=== PATIENT | female | born 1960 | race Caucasian/White ===

== ENCOUNTER 2023-05-02 19:24 | Outpatient (CLI) | payer OTHER, SELFPAY | END 2023-05-02 19:25 | disposition home or self-care (01) | PROVIDERS: Visit Provider Nurse Practitioner Family | DX: R10.9 Unspecified abdominal pain (principal); M54.9 Dorsalgia, unspecified | CPT/HCPCS: 80076; 83690; 86140; 87086 ==

== ENCOUNTER 2023-09-12 16:15 | Outpatient (RCR) | payer OTHER, SELFPAY ==
--- NOTE | 2023-08-22 17:30 | PT.OPEX ---
PT [place] [facility] PT [facility] Start: 08/22/23 11:32 Freq: Status: Active Protocol: Document 08/22/23 11:33 [facility] (Rec: 08/22/23 12:41 [facility] [id number]) E-signed By Cristi Merida, PT Physical Therapy Outpatient Evaluation Insurance Information Insurance Name [employer] Medical Diagnosis R ankle OA R knee OA plantar fasciitis Treating Diagnosis Right knee pain M25.561 right ankle pain M25.571 Stiffness R ankle M25.671 Muscle weakness 62.[address] Edmundo Ren Subjective Subjective Pt broke her right ankle ~5 years ago, a bad break, tib- fib open fracture, ORIF. After that, she had right knee pain /snapping on top of knee ( patella) and had arthroscopic sx to remove rough cartilage. That solved the snapping. ~2 years ago she twisted her left foot and sustained a fracture of left 5th toe - had surgery/CAM boot. A few months later she had right bunion surgery. Side note - Pt's daughter is a physical therapist in [place]. She is shocked that Gerri never had PT after her ankle surgery. Current symptoms: Right ankle: constant band restriction around ankle, ankle pain after activity fleeting/periodic right heel pain Right knee: lateral swelling, pain after activity, sit to stand, stairs sometimes Sleep sometime disrupted Baseline activity level: intermittent walking for exercise, elliptical Aggravating: walking on uneven ground (ankle) PMH: heart condition, recent diagnosis of peripheral neuropathy, arthritis, pulmonary emboli ~30 years ago (wears compression stockings/ on blood thinner) Pain Comments At worst: ankle: 8.5/10 knee: 8.5/10 at best: ankle: 0/10, knee: 0/10 Date of Last Physician Visit 08/08/23 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#) Preferred Name Shante Precautions Treatment Precautions/Contraindications on blood thinner med for h/o pulmonary emboli ~30 years ago Weight Bearing Status Full Weight Bearing Therapy Limitations/Systems Review Not Limited Objective Other/Pertinent Objective Balance: R SLS: 3 sec max L SLS 7 sec Ankle posture: forefoot eversion, mildly collapsed arches + visible mild/mod swelling right ankle ROM: Left ankle: WNL Right ankle: PF and Inversion WNL DF: limited to ~10 deg Eversion: limited compared to right, ~30 deg Right knee: WNL Palpation: no tenderness around right patella, knee joint line or distal ITB ankle: non tender posterior lat malleolus + TTP over medial dorsum of right foot (bunion sx site?) Right mild bunion still present calcaneal mobs: limited eversion and + clicking hypomobile TC A-P mobs hypermobile mid foot, bilaterally Strength: LEs: hip flexion 5/5 , knee extension R 4/5 (tremor /shaky) DF: 5/5 Inversion: 4+ /5 Eversion: 4/5 Left LE: hip flexion 5/5, knee extension 4+5 (mild tremor), ankle 5/5 Amb: Does not use big toe for push off on either side. Flat foot gait w/ favoring outer edge of feet. Functional Test Performed & Score DL squat: weight shift to left , favors right LE 8: limited control w/ step down LEFS: 56/80 Assessment Assessment/Impression 62 year old female with complex h/o of right ankle/ foot pain and right knee pain related to tib-fib fracture 5 years ago, toe fracture ~2 years ago and arthroscopic knee surgery also ~2 years ago for what sounds like chondromalacia patella. From Gerri's description, the extensive time she spent in a CAM boot impacted her right knee and she has had residual pain/stiffness ever since the surgery in her ankle. This is her first time having PT for her right LE in the last five years. She presents with impaired ROM and strength of her right foot/ankle along with thickened edema in her ankle, impaired balance and altered gait pattern. A new diagnosis for her is peripheral neuropathy of unknown origin. She displayed tremor with MMT of quads that may be related to this dx. I recommend skilled PT for progression of a HEP to facilitate ankle/LE strength, ROM and balance along with skilled MT to her right ankle to optimize her functional mobility. Primary Functional Limitations balance, ambulation on uneven surfaces, stairs, sit to stand , sleep Plan of Care Rehabilitation Potential Excellent Rehabilitation Potential Comments self-motivated Physical Therapy Goals In 6-8 weeks, patient will: 1) Tfr sit to stand painfree 2) Ambulate up/down flight of stairs painfree at the end of a day 3) Ambulate on uneven surfaces (ie mowing the lawn) with pain max afterwards of 2/10 4) Improve SLS balance to 15 seconds to reduce fall risk 5) Report sleep undisrupted by ankle/knee pain 6/7 nights per week Coordination/Communication With Referral Source Treatment Plan/Direct Interventions Joint Mobilization,Manual Therapy,Neuromuscular Re-ed, Self-Care/Home Management, Therapeutic Activities, Therapeutic Exercises Direct Interventions Clarification right ankle/foot mobs, prn. Comments ROM/strength ex. Balance ex/ motor control Frequency/Duration 1x/ week for 6-8 weeks Patient Will Be Discharged From Therapy Independent w/HEP, Independently Progressing Evaluation Billing Untimed Code Treatment Minutes 30 Complexity Moderate Certification Information Physician Comment/Change : Physician NPI Number #
== END 2023-12-17 10:52 | disposition home or self-care (01) ==
PROVIDERS: Visit Provider Orthopaedic Surgery
DX: M19.071 Primary osteoarthritis, right ankle and foot (principal); M17.11 Unilateral primary osteoarthritis, right knee; Z51.89 Encounter for other specified aftercare; M72.2 Plantar fascial fibromatosis
CPT/HCPCS: 97110; 97112; 97140; 97162

== ENCOUNTER 2024-01-24 18:39 | Emergency (ER) | payer OTHER, SELFPAY ==
[2024-01-24 19:04] VITALS: BP 136/81; PULSE 72; RESP 18; TEMP 36.4; O2SAT 95; BMI 30.5
--- NOTE | 2024-01-24 19:25 | ED_ITS ---
HPI - General Adult General Date Seen: 01/24/24 Chief complaint: Extremity Pain/Injury, Upper Stated complaint: L ring finger-severely infected wound Time Seen by Provider: 01/24/24 19:13 Source: patient Mode of arrival: ambulatory Limitations: no limitations History of Present Illness HPI narrative: Patient is a 63-year-old woman who presents for infection in her left 4th finger. She says she had a paper control clerk something originally, noted that it was getting little red, was seen in clinic earlier today and started on Keflex. She has taken essentially 1 dose, she took a 2nd dose right before coming to the ER. She noted some red streaking up her hand and forearm. She has not had fevers, chills, nausea, vomiting or other systemic symptoms. She does have a history of diagnosed polymyalgia rheumatica and was started on prednisone in October, she continues to take that although she is currently tapering down. Other medical history reviewed. She is anticoagulated secondary to history of pulmonary embolism. Related Data Home Medications Medication Instructions Recorded Confirmed atenolol 25 mg tablet 25 mg PO BID 05/02/23 08/05/23 ezetimibe 10 mg tablet 10 mg PO DAILY 05/02/23 08/05/23 sumatriptan succinate 50 mg tablet 50 mg PO 05/02/23 08/05/23 valacyclovir 1 gram tablet 4,000 mg PO ONCE 05/02/23 08/05/23 venlafaxine 37.5 mg 37.5 mg PO BID 05/02/23 08/05/23 capsule,extended release 24 hr warfarin 7.5 mg tablet mg PO 05/02/23 08/05/23 acetaminophen 500 mg tablet mg PO PRN 08/05/23 08/05/23 calcium carbonate-vitamin D3 PO 08/05/23 08/05/23 cholecalciferol (vitamin D3) 25 1,000 unit PO BID 08/05/23 08/05/23 mcg (1,000 unit) tablet diclofenac sodium 1 % topical gel 1 topical .Daily as needed PRN 08/05/23 08/05/23 diphenhydramine 25 2 tab PO .Bedtime 08/05/23 08/05/23 mg-acetaminophen 500 mg tablet lysine 500 mg tablet mg PO .3XWEEK 08/05/23 08/05/23 multivitamin (Multiple Vitamins 1 tab PO QDAY 08/05/23 08/05/23 tablet) penciclovir 1 % topical cream 1 applic topical PRN 08/05/23 08/05/23 sumatriptan succinate 25 mg tablet 25 mg PO .As Needed PRN 08/05/23 08/05/23 venlafaxine 75 mg tablet,extended 150 mg PO DAILY 08/05/23 08/05/23 release 24 hr Allergies Allergy/AdvReac Type Severity Reaction Status Date / Time simvastatin Allergy Intermediate malagia Verified 08/08/23 14:50 atorvastatin [From Lipitor] AdvReac Verified 08/08/23 14:50 Review of Systems Status of ROS: Reports: 10 or more systems reviewed and unremarkable except as noted in History and below [facility] Medical History Sleep apnea ?G47.30 - Sleep apnea, unspecified (ICD-10) Pulmonary embolism ?I26.99 - Other pulmonary embolism without acute cor pulmonale (ICD-10) Arthritis ?M19.90 - Unspecified osteoarthritis, unspecified site (ICD-10) UTI (urinary tract infection) ?N39.0 - Urinary tract infection, site not specified (ICD-10) Abdominal pain ?R10.9 - Unspecified abdominal pain (ICD-10) Surgical History H/O arthroscopy of right knee ?Z98.890 - Other specified postprocedural states (ICD-10) S/P tonsillectomy ?Z90.89 - Acquired absence of other organs (ICD-10) Open fracture of tibia and fibula ?S82.209B - Unspecified fracture of shaft of unspecified tibia, initial encounter for open fracture type I or II (ICD-10) ?S82.409B - Unspecified fracture of shaft of unspecified fibula, initial encounter for open fracture type I or II (ICD-10) History of hysteroscopy (08/02/15) ?Z98.890 - Other specified postprocedural states (ICD-10) Status post laparoscopic appendectomy (11/20/18) ?Z90.49 - Acquired absence of other specified parts of digestive tract (ICD- 10) Family History Father Diabetes Lung cancer Social History Smoking Status: Never smoker Non-prescribed substance use: denies use Exam Narrative: Exam Narrative: Vital signs reviewed In general, alert, well-appearing woman. Extremities: Examination of the left hand shows a small linear wound, there is a little bit of purulence noted underneath this and then about a half a cm of surrounding erythema. She does have a little lymphangitis streaking up the hand and midway up forearm. There is some tenderness around the wound, the rest of the finger looks normal however, she has full range of motion, no signs of tenosynovitis. Radial pulse 2 +, distal CMS normal. Skin: Warm dry well perfused otherwise intact. Const: Vital Signs, click to edit/add: Vital Signs - 24 hr 01/24/24 19:04 Temperature 97.6 F Pulse Rate [Pulse Oximeter] 72 Respiratory Rate 18 Blood Pressure [Ri ght Upper Arm] 136/81 Pulse Oximetry 95 Oxygen Delivery Me thod Room Air Documenting provider has reviewed patient's vital signs: yes Course Course ED Course: I used a 27 gauge needle to gently unroof the wound and expressed a small amount of pus from this. A bandage was applied by the electrocardiograph technician. Given that she is somewhat immune suppressed, I did recommend that we give her dose of IV Rocephin, get a baseline CBC CRP. She does not have any systemic complaints, looks well here and I think with only 1 dose affectively of the Keflex and that it is reasonable to discharge her home. I am going to switch her to doxycycline just to get some coverage for MRSA. If she has significant worsening at any time, or does not improve over 48 hours, she should return. Otherwise, follow up next week for recheck in clinic. Did discuss with her that her INR might be affected by the antibiotics, would be reasonable recheck that in clinic next week. Vital Signs Vital signs: Initial Vital Signs Temperature 97.6 F 01/24/24 19:04 Temperature Source Temporal Artery Scan 01/24/24 19:04 Pulse Rate 72 01/24/24 19:04 Pulse Rhythm Regular 01/24/24 19:04 Respiratory Rate 18 01/24/24 19:04 Blood Pressure 136/81 01/24/24 19:04 Blood Pressure Mean 99 01/24/24 19:04 Blood Pressure Position Sitting 01/24/24 19:04 Pulse Oximetry 95 01/24/24 19:04 Oxygen Delivery Method Room Air 01/24/24 19:04 Vital Signs Temperature 97.6 F 01/24/24 19:04 Pulse Rate 72 01/24/24 19:04 Respiratory Rate 18 01/24/24 19:04 Blood Pressure 136/81 01/24/24 19:04 Pulse Oximetry 95 01/24/24 19:04 Oxygen Delivery Method Room Air 01/24/24 19:04 Temperature 97.6 F 01/24/24 19:04 Pulse Rate 72 01/24/24 19:04 Respiratory Rate 18 01/24/24 19:04 Blood Pressure 136/81 01/24/24 19:04 Pulse Oximetry 95 01/24/24 19:04 Oxygen Delivery Method Room Air 01/24/24 19:04 Medications Administered Medications: Generic Name Dose Route Start Last Admin Trade Name Freq PRN Reason Stop Dose Admin Ceftriaxone Sodium 1 gm/ 100 mls @ 200 mls/hr 01/24/24 19:22 01/24/24 19:49 Sodium Chloride IVPB 01/24/24 19:23 200 mls/hr ONCE ONE Administration Medical Decision Making Lab Data Labs: Lab Results 01/24/24 Range/Units 19:35 WBC 5.67 (4.50-11.00) K/uL RBC 4.63 (4.00-5.20) m/uL Hgb 13.4 (12.0-16.0) gm/dL Hct 40.3 (33.0-51.0) % MCV 87 (80-100) fL MCH 29 (26-34) pg MCHC 33 (32-36) gm/dL RDW Coeff of Umu 16.0 H (11.5-15.5) % Plt Count 229 (140-440) K/uL Neut % (Auto) 55.6 (42.0-72.0) % Lymph % (Auto) 32.8 (20-44) % [place] % (Auto) 8.5 (0.0-11.0) % Eos % (Auto) 2.3 (0.0-7.0) % Baso % (Auto) 0.4 (0.0-3.0) % Neut # (Auto) 3.16 (1.7-7.0) K/uL Lymph # (Auto) 1.86 (0.90-2.90) K/uL [place] # (Auto) 0.50 (0.00-0.90) K/UL Eos # (Auto) 0.13 (0.00-0.50) K/uL Baso # (Auto) 0.02 (0.00-0.30) K/uL Abs Immat Gran (auto) 0.02 (0.00-0.30) K/uL Imm/Tot Granulo (auto) 0.4 % C-Reactive Protein < 0.5 L (0.5-1.0) mg/dL Discharge Plan Discharge Clinical Impression: Infected wound, Lymphangitis Patient Disposition: Home, Self-Care Condition: Stable Instructions: Wound Infection (DC) Additional Instructions: Discontinue Keflex, start doxycycline as prescribed. I would expect over the next 24-48 hours that you should have significant improvement. If instead you notice worsening, if you have significant worsening at any time, with severe redness, swelling, pain, or new systemic symptoms such as fever, chills, vomiting, return at any time to the emergency department. If not significantly improved in 48 hours, return or see your clinic. Otherwise, follow up next week in clinic for recheck, consider checking INR as this can be affected by the antibiotics. Prescriptions: No Action valacyclovir 1 gram tablet 4,000 mg PO ONCE warfarin 7.5 mg tablet PO sumatriptan succinate 50 mg tablet 50 mg PO ezetimibe 10 mg tablet 10 mg PO DAILY venlafaxine 37.5 mg capsule,extended release 24hr 37.5 mg PO BID atenolol 25 mg tablet 25 mg PO BID venlafaxine 75 mg tablet extended release 24hr 150 mg PO DAILY diclofenac sodium 1 % gel 1 topical .Daily as needed PRN cholecalciferol (vitamin D3) 25 mcg (1,000 unit) tablet 1,000 unit PO BID lysine 500 mg tablet PO .3XWEEK acetaminophen 500 mg tablet PO PRN Rx Instructions: NO MORE THAN 4000 MG/DAY diphenhydramine-acetaminophen 25-500 mg tablet 2 tab PO .Bedtime multivitamin [Multiple Vitamins] Tablet 1 tab PO QDAY sumatriptan succinate 25 mg tablet 25 mg PO .As Needed PRN Rx Instructions: ONE TAB AT ONSET OF HEADACHE, MAY REPEAT Q2H PRN, MAX 200 MG/24 HRS penciclovir 1 % cream 1 applic topical PRN Rx Instructions: APPLY A SMALL AMOUNT TO THE AFFECTED AREA calcium carbonate-vitamin D3 PO Follow Up/Referrals: Provider,Not a Local [Primary Care Provider] - Stand Alone Forms: Recommindth Info Instructions
[2024-01-24] MEDS: cefTRIAXone 1 GM in 0.9 % SODIUM CHLORIDE Mini-bag 100 ML IVPB (19:49)
[2024-01-24 19:50] LABS: Basophils Absolute Auto 0.02 K/uL (0.00-0.30); Basophils Percent Auto 0.4 % (0.0-3.0); Eosinophils Absolute Auto 0.13 K/uL (0.00-0.50); Eosinophils Percent Auto 2.3 % (0.0-7.0); Hematocrit 40.3 % (33.0-51.0); Hemoglobin* 13.4 gm/dL (12.0-16.0); Immature Granulocytes Abs Auto 0.02 K/uL (0.00-0.30); Immature Granulocytes Pct Auto 0.4 %; Lymphocytes Absolute Auto 1.86 K/uL (0.90-2.90); Lymphocytes Percent Auto 32.8 % (20-44); Mean Corpuscular HGB Conc 33 gm/dL (32-36); Mean Corpuscular Hemoglobin 29 pg (26-34); Mean Corpuscular Volume 87 fL (80-100); Monocytes Percent Auto 8.5 % (0.0-11.0); Neutrophils Absolute Auto 3.16 K/uL (1.7-7.0); Neutrophils Percent Auto 55.6 % (42.0-72.0); Platelet Count* 229 K/uL (140-440); Red Blood Count 4.63 m/uL (4.00-5.20); White Blood Count* 5.67 K/uL (4.50-11.00)
[2024-01-24 19:53] LABS: Slide Review Reflex No
[2024-01-24 20:05] LABS: C Reactive Protein* < 0.5 mg/dL (0.5-1.0)
== END 2024-01-24 20:34 | disposition home or self-care (01) ==
LOC: ED 19:47
PROVIDERS: Emergency Provider Emergency Medicine
DX: L08.9 Local infection of the skin and subcutaneous tissue, unspecified (principal); I89.1 Lymphangitis
CPT/HCPCS: 36415; 85025; 86140; 96365; 99284; J0696

== ENCOUNTER 2024-01-25 13:39 | Emergency (ER) | payer OTHER, SELFPAY ==
[2024-01-25 14:03] VITALS: BP 144/90; PULSE 65; RESP 18; TEMP 36.4; O2SAT 95; BMI 30.5
--- NOTE | 2024-01-25 15:41 | ED.SKABFB ---
HPI - Skin/Abscess/Foreign Bdy General Chief complaint: Skin/Abscess/Foreign Body Stated complaint: rash on left arm Time Seen by Provider: 01/25/24 13:51 History of Present Illness HPI narrative: Patient presents to the emergency department complaining of redness outside previous tracing from a previous visit. Patient was placed on abx Patient was seen last night, given a dosage of Rocephin, and placed on doxycycline as she previously was on Keflex. Told to follow-up if increasing redness of which there is. She has been hanging her wrist down. Notes that the redness is more proximal cry about approximately 4-6 cm. But she has had no pain. And has able to move around her hand normally she denies any fevers chills or sweats. I did review the chart from before P Related Data Home Medications Medication Instructions Recorded Confirmed atenolol 25 mg tablet 25 mg PO BID 05/02/23 08/05/23 ezetimibe 10 mg tablet 10 mg PO DAILY 05/02/23 08/05/23 sumatriptan succinate 50 mg tablet 50 mg PO 05/02/23 08/05/23 valacyclovir 1 gram tablet 4,000 mg PO ONCE 05/02/23 08/05/23 venlafaxine 37.5 mg 37.5 mg PO BID 05/02/23 08/05/23 capsule,extended release 24 hr warfarin 7.5 mg tablet mg PO 05/02/23 08/05/23 acetaminophen 500 mg tablet mg PO PRN 08/05/23 08/05/23 calcium carbonate-vitamin D3 PO 08/05/23 08/05/23 cholecalciferol (vitamin D3) 25 1,000 unit PO BID 08/05/23 08/05/23 mcg (1,000 unit) tablet diclofenac sodium 1 % topical gel 1 topical .Daily as needed PRN 08/05/23 08/05/23 diphenhydramine 25 2 tab PO .Bedtime 08/05/23 08/05/23 mg-acetaminophen 500 mg tablet lysine 500 mg tablet mg PO .3XWEEK 08/05/23 08/05/23 multivitamin (Multiple Vitamins 1 tab PO QDAY 08/05/23 08/05/23 tablet) penciclovir 1 % topical cream 1 applic topical PRN 08/05/23 08/05/23 sumatriptan succinate 25 mg tablet 25 mg PO .As Needed PRN 08/05/23 08/05/23 venlafaxine 75 mg tablet,extended 150 mg PO DAILY 08/05/23 08/05/23 release 24 hr Allergies Allergy/AdvReac Type Severity Reaction Status Date / Time simvastatin Allergy Intermediate malagia Verified 08/08/23 14:50 atorvastatin [From Lipitor] AdvReac Verified 08/08/23 14:50 Review of Systems Status of ROS: Reports: 6 or more systems reviewed and unremarkable except as noted in History and below PFSH PFS Medical History Sleep apnea ?G47.30 - Sleep apnea, unspecified (ICD-10) Pulmonary embolism ?I26.99 - Other pulmonary embolism without acute cor pulmonale (ICD-10) Arthritis ?M19.90 - Unspecified osteoarthritis, unspecified site (ICD-10) UTI (urinary tract infection) ?N39.0 - Urinary tract infection, site not specified (ICD-10) Abdominal pain ?R10.9 - Unspecified abdominal pain (ICD-10) Surgical History H/O arthroscopy of right knee ?Z98.890 - Other specified postprocedural states (ICD-10) S/P tonsillectomy ?Z90.89 - Acquired absence of other organs (ICD-10) Open fracture of tibia and fibula ?S82.209B - Unspecified fracture of shaft of unspecified tibia, initial encounter for open fracture type I or II (ICD-10) ?S82.409B - Unspecified fracture of shaft of unspecified fibula, initial encounter for open fracture type I or II (ICD-10) History of hysteroscopy (08/02/15) ?Z98.890 - Other specified postprocedural states (ICD-10) Status post laparoscopic appendectomy (11/20/18) ?Z90.49 - Acquired absence of other specified parts of digestive tract (ICD-10) Family History Father Diabetes Lung cancer Social History Smoking Status: Never smoker Do you use any of these nicotine containing products: None Second hand tobacco smoke exposure: No How often do you have a drink containing alcohol: never How often do you have six or more drinks on one occasion: Never AUDIT-C Alcohol total score: 0 Non-prescribed substance use: denies use service: No Exam Narrative: Exam Narrative: On examination there is a little bit a redness coming up her mid forearm, on the dorsum of her hand, there is no tenderness to palpation, there is not a lot of swelling, she is able to move her fingers normally. Through full range of motion of flexion extension, as is her wrist. Cap refills normal neurologically she is intact her Review of the yesterday's note show normal white count, Const: Vital Signs, click to edit/add: Vital Signs - 24 hr 01/25/24 14:03 Temperature 97.5 F L Pulse Rate [Left P ulse Oximeter] 65 Respiratory Rate 18 Blood Pressure [Le ft Upper Arm] 144/90 H Pulse Oximetry 95 Oxygen Delivery Me thod Room Air Documenting provider has reviewed patient's vital signs: yes Course Course ED Course: I discussed with her that this is normal for to worsen a little bit, I do not a she huge difference here in fact a by DB a little bit better as the swelling is I do think that immobilization along with a sling will be helpful here. She will continue on with the doxycycline of which she has really got at 1 dose in since she started it. I did residential substance abuse counselor her to come back if she has increasing fevers chills of the redness comes up above her elbow. Her she has pain in her hand Vital Signs Vital signs: Initial Vital Signs Temperature 97.5 F L 01/25/24 14:03 Temperature Source Temporal Artery Scan 01/25/24 14:03 Pulse Rate 65 01/25/24 14:03 Pulse Rhythm Regular 01/25/24 14:03 Pulse Strength 3+ Normal 01/25/24 14:03 Respiratory Rate 18 01/25/24 14:03 Blood Pressure 144/90 H 01/25/24 14:03 Blood Pressure Mean 108 H 01/25/24 14:03 Blood Pressure Position Sitting 01/25/24 14:03 Pulse Oximetry 95 01/25/24 14:03 Oxygen Delivery Method Room Air 01/25/24 14:03 Vital Signs Temperature 97.5 F L 01/25/24 14:03 Pulse Rate 65 01/25/24 14:03 Respiratory Rate 18 01/25/24 14:03 Blood Pressure 144/90 H 01/25/24 14:03 Pulse Oximetry 95 01/25/24 14:03 Oxygen Delivery Method Room Air 01/25/24 14:03 Temperature 97.5 F L 01/25/24 14:03 Pulse Rate 65 01/25/24 14:03 Respiratory Rate 18 01/25/24 14:03 Blood Pressure 144/90 H 01/25/24 14:03 Pulse Oximetry 95 01/25/24 14:03 Oxygen Delivery Method Room Air 01/25/24 14:03 MDM - Skin/Abscess/Foreign Bdy MDM Narrative Medical decision making narrative: During this evaluation I considered multiple diagnosis: Worsening cellulitis, tenosynovitis, lymphatic joint is, cat scratch disease, Medical Records Attestation: I reviewed the patient's medical records. Lab Data Attestation: I reviewed the patient's lab results. Discharge Plan Discharge Clinical Impression: Cellulitis Patient Disposition: Home, Self-Care Condition: Stable Instructions: Cellulitis (ED) Additional Instructions: Home rest use of the sling while waking hours, this may come up at nighttime when you sleep, please use the splint for the next 2-3 days, this is pretty normal the process, I do not see any science of really severe issues here. But would like to see back if he have increasing eye redness is coming up above the level of your elbow. Fevers chills or significant pain. Take the doxycycline as directed. Activity Level: Light activity Prescriptions: No Action valacyclovir 1 gram tablet 4,000 mg PO ONCE warfarin 7.5 mg tablet PO sumatriptan succinate 50 mg tablet 50 mg PO ezetimibe 10 mg tablet 10 mg PO DAILY venlafaxine 37.5 mg capsule,extended release 24hr 37.5 mg PO BID atenolol 25 mg tablet 25 mg PO BID venlafaxine 75 mg tablet extended release 24hr 150 mg PO DAILY diclofenac sodium 1 % gel 1 topical .Daily as needed PRN cholecalciferol (vitamin D3) 25 mcg (1,000 unit) tablet 1,000 unit PO BID lysine 500 mg tablet PO .3XWEEK acetaminophen 500 mg tablet PO PRN Rx Instructions: NO MORE THAN 4000 MG/DAY diphenhydramine-acetaminophen 25-500 mg tablet 2 tab PO .Bedtime multivitamin [Multiple Vitamins] Tablet 1 tab PO QDAY sumatriptan succinate 25 mg tablet 25 mg PO .As Needed PRN Rx Instructions: ONE TAB AT ONSET OF HEADACHE, MAY REPEAT Q2H PRN, MAX 200 MG/24 HRS penciclovir 1 % cream 1 applic topical PRN Rx Instructions: APPLY A SMALL AMOUNT TO THE AFFECTED AREA calcium carbonate-vitamin D3 PO Follow Up/Referrals: Provider,Not a Local [Primary Care Provider] - Stand Alone Forms: [employer] Info Instructions
== END 2024-01-25 14:56 | disposition home or self-care (01) ==
PROVIDERS: Emergency Provider Family Medicine
DX: L03.114 Cellulitis of left upper limb (principal)
CPT/HCPCS: 99283

== ENCOUNTER 2024-05-20 08:39 | Emergency (ER) | payer OTHER, SELFPAY ==
[2024-05-20] VITALS (8 sets, daily range): BP systolic 158–160; BP diastolic 93–115; PULSE 60–96; RESP 18; TEMP 36.7; O2SAT 94–98; BMI 30.9
--- NOTE | 2024-05-20 09:44 | CRLHL7_ITS ---
For Patients: As a result of the Century Cures Act, medical imaging exams and procedure reports are released immediately into your electronic medical record. You may view this report before your referring provider. If you have questions, please contact your health care provider. INDICATION: Diplopia. TECHNIQUE: CT head without contrast. COMPARISON: None. FINDINGS: CSF spaces: Within normal limits for age. Brain parenchyma and extra-axial spaces: The mauricio-white differentiation is normal. No sign of mass, hemorrhage, or midline shift. No extra-axial fluid collection. Skull base and calvarium: The visualized paranasal sinuses and mastoid air cells demonstrate no acute or significant findings. The visualized orbits are grossly unremarkable. No skull fractures. Subcutaneous lesion within the vertex, likely a sebaceous cyst. IMPRESSION: Unremarkable noncontrast head CT. Please note that all CT scans at this facility use dose modulation, iterative reconstruction, and/or weight-based dosing when appropriate to reduce radiation dose to as low as reasonably achievable. Dictated by Toribio Grant MD @ 05/20/2024 10:39:53 AM (Electronically Signed)
--- NOTE | 2024-05-20 09:44 | CRLHL7_ITS ---
For Patients: As a result of the Century Cures Act, medical imaging exams and procedure reports are released immediately into your electronic medical record. You may view this report before your referring provider. If you have questions, please contact your health care provider. Indication: Diplopia Technique: MRI Head: performed before and after IV contrast. MRA Head: performed without IV contrast. MRA Neck: performed before and after IV contrast. Gadolinium-based contrast agent: 20 mL Dotarem IV contrast. Comparison: CT head report 05/20/2024. Findings: MRI Head: No evidence for recent or remote infarct or hemorrhage. No intracranial mass effect. No ventricular obstruction. Scattered foci of FLAIR hyperintensity throughout the supratentorial white matter and dorsal greater than ventral maegan, nonspecific, but suggestive of chronic microangiopathy. No pathologic postcontrast enhancement or suspicious susceptibility artifact. Unremarkable midline structures. Normal bone marrow signal. High parietal scalp sebaceous cyst. No obstructive paranasal sinus disease or mastoid effusion. Bilateral lens implants. MRA Head: The intracranial segments of the internal carotid arteries and basilar artery are widely patent. The anterior, middle and posterior cerebral arteries and proximal branches are grossly patent. There is suggestion of a shallow outpouching in the region of the origin right posterior communicating artery (series 1/112), without imaging correlate on the postcontrast MRI brain or MRA neck images. No high-flow AV malformation. MRA Neck: The bilateral common carotid arteries, internal and external carotid arteries are widely patent. No stenosis near the common carotid bifurcations. Bilateral vertebral arteries also appear widely patent. Impression: MRI Head: 1. No acute pathology identified. No evidence for mass, hemorrhage or recent infarct. 2. Mild generalized cerebral volume loss and mild presumed chronic microangiopathy changes. MRA Head: 1. Questionable outpouching at the origin right posterior communicating artery, could represent a tiny aneurysm, infundibulum, or artifact. Outpatient consultation with the [facility] Neurointerventional service can be arranged by calling [phone]. 2. No intracranial large vessel occlusion, critical stenosis, or high-flow AV malformation. MRA Neck: 1. No evidence for hemodynamically significant stenosis in the neck. Dictated by Dipti Merlos MD @ 05/20/2024 12:20:51 PM (Electronically Signed)
--- NOTE | 2024-05-20 09:48 | ED.GENADULT ---
HPI - General Adult General Chief complaint: Eye Problems Stated complaint: Double vision since yesterday, headache Time Seen by Provider: 05/20/24 08:53 History of Present Illness HPI narrative: Patient is a pleasant 63 white female has had a history of pulmonary embolus, on Coumadin with INR due to be checked, as well as on prednisone for PMR, presents after onset of double vision yesterday. She had reports a mild headache, feels like ?her left eye is funny?. She has noted yesterday that she had intermittent episodes of double vision or blurred vision, but each individual eye when the other eye was covered seemed to be normal but just generally blurry she does wear his corrective lenses. Intermittently she had the double vision today and actually could see [address] above another road sign. No chest pain, no fever, no other neurologic signs or symptoms, no facial asymmetry word-finding inability or weakness or numbness or dysesthesia noted in upper lower extremities. Related Data Home Medications ?Medication ?Instructions ?Recorded ?Confirmed ezetimibe 10 mg tablet 10 mg PO DAILY 05/02/23 05/20/24 sumatriptan succinate 50 mg tablet 50 mg PO Q2H 05/02/23 05/20/24 valacyclovir 1 gram tablet 4,000 mg PO ONCE 05/02/23 05/20/24 warfarin 7.5 mg tablet 7.5 mg PO DAILY 05/02/23 05/20/24 acetaminophen 500 mg tablet 500 mg PO PRN 08/05/23 08/05/23 calcium carbonate-vitamin D3 PO 08/05/23 08/05/23 cholecalciferol (vitamin D3) 25 1,000 unit PO BID 08/05/23 05/20/24 mcg (1,000 unit) tablet diclofenac sodium 1 % topical gel 2 g topical .Daily as needed PRN 08/05/23 05/20/24 diphenhydramine 25 2 tab PO .Bedtime 08/05/23 05/20/24 mg-acetaminophen 500 mg tablet lysine 500 mg tablet 500 mg PO .3XWEEK 08/05/23 05/20/24 multivitamin (Multiple Vitamins 1 tab PO QDAY 08/05/23 05/20/24 tablet) penciclovir 1 % topical cream 1 applic topical Q2H PRN 08/05/23 05/20/24 sumatriptan succinate 25 mg tablet 25 mg PO .As Needed PRN 08/05/23 08/05/23 venlafaxine 75 mg tablet,extended 150 mg PO DAILY 08/05/23 05/20/24 release 24 hr rosuvastatin 10 mg tablet PO 05/20/24 Allergies Allergy/AdvReac Type Severity Reaction Status Date / Time simvastatin Allergy Intermediate malagia Verified 08/08/23 14:50 atorvastatin [From Lipitor] AdvReac Verified 08/08/23 14:50 Review of Systems Status of ROS: Reports: 6 or more systems reviewed and unremarkable except as noted in History and below [facility] Medical History Sleep apnea ?G47.30 - Sleep apnea, unspecified (ICD-10) Pulmonary embolism ?I26.99 - Other pulmonary embolism without acute cor pulmonale (ICD-10) Arthritis ?M19.90 - Unspecified osteoarthritis, unspecified site (ICD-10) UTI (urinary tract infection) ?N39.0 - Urinary tract infection, site not specified (ICD-10) Abdominal pain ?R10.9 - Unspecified abdominal pain (ICD-10) Surgical History H/O arthroscopy of right knee ?Z98.890 - Other specified postprocedural states (ICD-10) S/P tonsillectomy ?Z90.89 - Acquired absence of other organs (ICD-10) Open fracture of tibia and fibula ?S82.209B - Unspecified fracture of shaft of unspecified tibia, initial encounter for open fracture type I or II (ICD-10) ?S82.409B - Unspecified fracture of shaft of unspecified fibula, initial encounter for open fracture type I or II (ICD-10) History of hysteroscopy (08/02/15) ?Z98.890 - Other specified postprocedural states (ICD-10) Status post laparoscopic appendectomy (11/20/18) ?Z90.49 - Acquired absence of other specified parts of digestive tract (ICD-10) Family History Father Diabetes Lung cancer Social History Smoking Status: Never smoker Do you use any of these nicotine containing products: None Second hand tobacco smoke exposure: No How often do you have a drink containing alcohol: 2-4 times a month How often do you have six or more drinks on one occasion: Never AUDIT-C Alcohol total score: 2 Non-prescribed substance use: denies use service: No Exam Narrative: Exam Narrative: Objective: Vital signs are within normal limits Alert orient x3 No facial asymmetry Pupils equal react to light extra movements intact Patient does not notice the double vision now or diplopia Mouth clear tongue protrudes midline Neck is supple Chest clear Heart rhythm regular heart murmur Abdomen benign Extremities are no edema neurologic nonfocal normal strength sensation and function of upper lower extremities. Const: Vital Signs, click to edit/add: Vital Signs - 24 hr 05/20/24 08:50 05/20/24 11:33 05/20/24 11:34 Temperature 98.1 F Pulse Rate 62 Pulse Rate [Pulse Oximeter] 96 Respiratory Rate 18 Blood Pressure 160/115 H Pulse Oximetry 96 97 97 Oxygen Delivery Me thod Room Air 05/20/24 11:34 05/20/24 12:00 05/20/24 12:02 Temperature Pulse Rate 60 62 62 Pulse Rate [Pulse Oximeter] Respiratory Rate Blood Pressure 158/94 H Pulse Oximetry 98 94 95 Oxygen Delivery Me thod 05/20/24 12:30 05/20/24 12:32 05/20/24 12:57 Temperature 98.1 F Pulse Rate 63 63 Pulse Rate [Pulse Oximeter] 96 Respiratory Rate 18 Blood Pressure 160/93 H Pulse Oximetry 95 96 Oxygen Delivery Me thod Course Vital Signs Vital signs: Initial Vital Signs Temperature 98.1 F 05/20/24 08:50 Temperature Source Temporal Artery Scan 05/20/24 08:50 Pulse Rate 96 05/20/24 08:50 Pulse Rhythm Regular 05/20/24 08:50 Respiratory Rate 18 05/20/24 08:50 Pulse Oximetry 96 05/20/24 08:50 Oxygen Delivery Method Room Air 05/20/24 08:50 Vital Signs Temperature 98.1 F 05/20/24 08:50 Pulse Rate 96 05/20/24 08:50 Respiratory Rate 18 05/20/24 08:50 Pulse Oximetry 96 05/20/24 08:50 Oxygen Delivery Method Room Air 05/20/24 08:50 Temperature 98.1 F 05/20/24 12:57 Pulse Rate 96 05/20/24 12:57 Respiratory Rate 18 05/20/24 12:57 Blood Pressure 160/93 H 05/20/24 12:32 Pulse Oximetry 96 05/20/24 12:32 Oxygen Delivery Method Room Air 05/20/24 08:50 Medications Administered Medications: Discontinued Medications Generic Name Dose Route Start Last Admin Trade Name Freq PRN Reason Stop Dose Admin Sodium Chloride 500 mls @ 500 mls/hr 05/20/24 09:46 05/20/24 12:50 0.9 % Sodium Chloride 500 Ml IV 05/20/24 10:45 Infused .Q1H ONE Infusion Medical Decision Making MDM Narrative Medical decision making narrative: [age] year white female with history of anticoagulation for pulmonary embolus, currently on Coumadin, presents with diplopia on and off over 24 hours. No other focal neurologic findings or complaints. Patient notices it somewhat today as well although it has been intermittent. I think at this point would be reasonable given she is on Coumadin check her labs get a CT scan to rule out bleed, get MRI MRA of her head neck. Will discuss with Stroke Neurology. Look at her INR. Get an EKG as well. Disposition pending findings. Lab Data Labs: Lab Results 05/20/24 Range/Units 10:16 WBC 11.60 H (4.50-11.00) K/uL RBC 4.51 (4.00-5.20) m/uL Hgb 13.6 (12.0-16.0) gm/dL Hct 41.9 (33.0-51.0) % MCV 93 (80-100) fL MCH 30 (26-34) pg MCHC 33 (32-36) gm/dL RDW Coeff of Umu 14.2 (11.5-15.5) % Plt Count 253 (140-440) K/uL Neut % (Auto) 82.3 H (42.0-72.0) % Lymph % (Auto) 9.9 L (20-44) % [place] % (Auto) 6.6 (0.0-11.0) % Eos % (Auto) 0.6 (0.0-7.0) % Baso % (Auto) 0.2 (0.0-3.0) % Neut # (Auto) 9.50 H (1.7-7.0) K/uL Lymph # (Auto) 1.10 (0.90-2.90) K/uL [place] # (Auto) 0.80 (0.00-0.90) K/UL Eos # (Auto) 0.10 (0.00-0.50) K/uL Baso # (Auto) 0.00 (0.00-0.30) K/uL Abs Immat Gran (auto) 0.00 (0.00-0.30) K/uL Imm/Tot Granulo (auto) 0.4 % INR 1.61 H (0.91-1.10) Sodium 137 (135-149) mmol/L Potassium 4.7 (3.6-5.1) mmol/L Chloride 104 (96-114) mmol/L Carbon Dioxide 28 (20-32) mmol/L Anion Gap 5 L (7-15) mEq/L BUN 18 (7-30) mg/dL Creatinine 0.7 (0.5-1.5) mg/dL Estimated Creat Clear 56.72 Estimated GFR 98 ml/min Glucose 110 (60-115) mg/dL Calcium 9.7 (8.4-10.6) mg/dL Total Bilirubin 0.6 (0.1-1.5) mg/dL Direct Bilirubin 0.3 (0.0-0.5) mg/dL AST 26 (12-35) U/L ALT 24 (4-35) U/L Alkaline Phosphatase 40 (40-150) U/L C-Reactive Protein < 0.5 L (0.5-1.0) mg/dL NT-Pro-B Natriuret Pep 139 pg/mL Total Protein 7.4 (6.0-8.3) g/dL Albumin 4.6 (3.3-5.0) g/dL Discharge Plan Discharge Clinical Impression: Diplopia Patient Disposition: Home w/ Parent or Adult Condition: Stable Additional Instructions: Continue Coumadin, you need an extra half dose today and then recheck your INR within the next couple of days. Recommend follow-up with [facility] neuro- interventional service which can be reached at [phone]. Recommend an eye appointment today for re-examination. There were no abnormal findings on her MRI or CT scan, except a tiny outpouching of the posterior communicating artery near brain which could represent an aneurysm or an artifact. Recommend follow-up with the neurointerventional clinic for evaluation Follow up appointment is scheduled at [facility] on 05/20 with a 3:10pm arrival time. If you have any questions, please call [phone]. [facility] [address] [place] [address] Activity Level: Light activity Discharge Diet: Regular Prescriptions: No Action valacyclovir 1 gram tablet 4,000 mg PO ONCE warfarin 7.5 mg tablet 7.5 mg PO DAILY sumatriptan succinate 50 mg tablet 50 mg PO Q2H ezetimibe 10 mg tablet 10 mg PO DAILY venlafaxine 75 mg tablet extended release 24hr 150 mg PO DAILY diclofenac sodium 1 % gel 2 g topical .Daily as needed PRN cholecalciferol (vitamin D3) 25 mcg (1,000 unit) tablet 1,000 unit PO BID lysine 500 mg tablet 500 mg PO .3XWEEK acetaminophen 500 mg tablet 500 mg PO PRN Rx Instructions: NO MORE THAN 4000 MG/DAY diphenhydramine-acetaminophen 25-500 mg tablet 2 tab PO .Bedtime multivitamin [Multiple Vitamins] Tablet 1 tab PO QDAY sumatriptan succinate 25 mg tablet 25 mg PO .As Needed PRN Rx Instructions: ONE TAB AT ONSET OF HEADACHE, MAY REPEAT Q2H PRN, MAX 200 MG/24 HRS penciclovir 1 % cream 1 applic topical Q2H PRN Rx Instructions: APPLY A SMALL AMOUNT TO THE AFFECTED AREA calcium carbonate-vitamin D3 PO rosuvastatin 10 mg tablet PO Follow Up/Referrals: Provider,Not a Local [Primary Care Provider] - Stand Alone Forms: [employer] Info Instructions
[2024-05-20 10:31] LABS: Basophils Percent Auto 0.2 % (0.0-3.0); Eosinophils Percent Auto 0.6 % (0.0-7.0); Hematocrit 41.9 % (33.0-51.0); Hemoglobin* 13.6 gm/dL (12.0-16.0); Immature Granulocytes Pct Auto 0.4 %; Lymphocytes Percent Auto 9.9 % (20-44); Mean Corpuscular HGB Conc 33 gm/dL (32-36); Mean Corpuscular Hemoglobin 30 pg (26-34); Mean Corpuscular Volume 93 fL (80-100); Monocytes Percent Auto 6.6 % (0.0-11.0); Neutrophils Percent Auto 82.3 % (42.0-72.0); Platelet Count* 253 K/uL (140-440); RDW Coefficient of Variation % 14.2 % (11.5-15.5); Red Blood Count 4.51 m/uL (4.00-5.20)
[2024-05-20 10:33] LABS: Slide Review Reflex No
[2024-05-20 10:42] LABS: INR 1.61 (0.91-1.10); Prothrombin Time 20.2 Seconds
[2024-05-20 10:53] LABS: Albumin* 4.6 g/dL (3.3-5.0); Chloride* 104 mmol/L (96-114)
[2024-05-20 10:54] LABS: Potassium* 4.7 mmol/L (3.6-5.1); Sodium* 137 mmol/L (135-149)
[2024-05-20 10:56] LABS: Creatinine* 0.7 mg/dL (0.5-1.5); Est. Creatinine Clearance* 56.72; Estimated Glomerular Filt Rate 98 ml/min
[2024-05-20 10:57] LABS: Alanine Aminotransferase* 24 U/L (4-35); Alkaline Phosphatase* 40 U/L (40-150); Anion Gap 5 mEq/L (7-15); Aspartate Amino Transferase* 26 U/L (12-35); Bilirubin Direct* 0.3 mg/dL (0.0-0.5); Bilirubin Total* 0.6 mg/dL (0.1-1.5); Blood Urea Nitrogen* 18 mg/dL (7-30); Calcium* 9.7 mg/dL (8.4-10.6); Carbon Dioxide* 28 mmol/L (20-32); Glucose* 110 mg/dL (60-115); Total Protein* 7.4 g/dL (6.0-8.3)
[2024-05-20 11:04] LABS: C Reactive Protein* < 0.5 mg/dL (0.5-1.0)
[2024-05-20 11:07] LABS: NT Pro B Type NatriureticPept* 139 pg/mL
[2024-05-20] MEDS: 0.9 % SODIUM CHLORIDE 500 ML 500 ML IV (11:35)
== END 2024-05-20 13:02 | disposition home or self-care (01) ==
PROVIDERS: Emergency Provider Family Medicine
DX: H53.2 Diplopia (principal)
CPT/HCPCS: 36415; 70450; 70544; 70549; 70553; 80048; 80076; 83880; 85025; 85610; 86140; 93005; 94761; 99285; A9575; J7030

== ENCOUNTER 2024-07-11 11:03 | Emergency (ER) | payer OTHER, SELFPAY ==
[2024-07-11 11:10] VITALS: BP 112/83; PULSE 145; RESP 16; TEMP 36.4; O2SAT 98; BMI 31.0
--- NOTE | 2024-07-11 11:31 | CRLHL7_ITS ---
For Patients: As a result of the Century Cures Act, medical imaging exams and procedure reports are released immediately into your electronic medical record. You may view this report before your referring provider. If you have questions, please contact your health care provider. INDICATION: Chest pain TECHNIQUE: Chest radiograph 1 view COMPARISON: None FINDINGS: The sensitivity and specificity of the exam are moderately limited by the patient`s body habitus. Mediastinum: The mediastinum is normal in appearance. The heart silhouette is normal in size and morphology. Lung: Both lungs are unremarkable in appearance. No sign of pleural effusion seen. No pneumothorax is identified. Bone and Soft tissue: Unremarkable for age. IMPRESSION: 1. No acute cardiopulmonary disease is seen. Dictated by: Migel Jefferson MD @ 07/11/2024 12:28:10 (Electronically Signed)
--- NOTE | 2024-07-11 11:40 | ED_ITS ---
HPI - General Adult General Chief complaint: Shortness of Breath/Dyspnea Stated complaint: Tachycardia Time Seen by Provider: 07/11/24 11:05 History of Present Illness HPI narrative: Patient is a 63-year-old female presenting to the emergency department for tachycardia. She states she has a long history of tachycardia since she was in her 20s. She has never been officially diagnosed shows for why she gets this episode to tachycardia but does see Cardiology through [facility]. States in the past usually symptoms would go away after she would take a dose of atenolol. Of note though she has began having more frequent episodes and 2 months ago she was switched from metoprolol for atenolol. Has continued to have symptoms weekly but states even with a occurred night a usually gone by morning. States last night she started having episode but she could feel her heart racing so she went to bed and symptoms seem better when she woke up when she started moving around again she noticed her heart rate was fast again. She is having some chest discomfort she describes is a burning sensation in her mid chest along with shortness of breath that she states is consistent with all her previous episodes of this. Has never been told she has AFib or SVT that she is aware of. States she took 2 doses of her metoprolol succinate last night and another 2 this morning. No other concerns noted. States she has some mild lightheadedness. Denies dizziness, headache, abdominal pain, diarrhea, constipation, fevers, chills. No other concerns noted. Related Data Home Medications ?Medication ?Instructions ?Recorded ?Confirmed ezetimibe 10 mg tablet 10 mg PO DAILY 05/02/23 05/20/24 sumatriptan succinate 50 mg tablet 50 mg PO Q2H 05/02/23 05/20/24 valacyclovir 1 gram tablet 4,000 mg PO ONCE 05/02/23 05/20/24 warfarin 7.5 mg tablet 7.5 mg PO DAILY 05/02/23 05/20/24 acetaminophen 500 mg tablet 500 mg PO PRN 08/05/23 08/05/23 calcium carbonate-vitamin D3 PO 08/05/23 08/05/23 cholecalciferol (vitamin D3) 25 1,000 unit PO BID 08/05/23 05/20/24 mcg (1,000 unit) tablet diclofenac sodium 1 % topical gel 2 g topical .Daily as needed PRN 08/05/23 05/20/24 diphenhydramine 25 2 tab PO .Bedtime 08/05/23 05/20/24 mg-acetaminophen 500 mg tablet lysine 500 mg tablet 500 mg PO .3XWEEK 08/05/23 05/20/24 multivitamin (Multiple Vitamins 1 tab PO QDAY 08/05/23 05/20/24 tablet) penciclovir 1 % topical cream 1 applic topical Q2H PRN 08/05/23 05/20/24 sumatriptan succinate 25 mg tablet 25 mg PO .As Needed PRN 08/05/23 08/05/23 venlafaxine 75 mg tablet,extended 150 mg PO DAILY 08/05/23 05/20/24 release 24 hr rosuvastatin 10 mg tablet PO 05/20/24 Allergies Allergy/AdvReac Type Severity Reaction Status Date / Time simvastatin Allergy Intermediate malagia Verified 07/11/24 11:15 atorvastatin [From Lipitor] AdvReac Verified 07/11/24 11:15 Review of Systems Status of ROS: Reports: 10 or more systems reviewed and unremarkable except as noted in History and below [facility] Medical History Sleep apnea ?G47.30 - Sleep apnea, unspecified (ICD-10) Pulmonary embolism ?I26.99 - Other pulmonary embolism without acute cor pulmonale (ICD-10) Arthritis ?M19.90 - Unspecified osteoarthritis, unspecified site (ICD-10) UTI (urinary tract infection) ?N39.0 - Urinary tract infection, site not specified (ICD-10) Abdominal pain ?R10.9 - Unspecified abdominal pain (ICD-10) Surgical History H/O arthroscopy of right knee ?Z98.890 - Other specified postprocedural states (ICD-10) S/P tonsillectomy ?Z90.89 - Acquired absence of other organs (ICD-10) Open fracture of tibia and fibula ?S82.209B - Unspecified fracture of shaft of unspecified tibia, initial encounter for open fracture type I or II (ICD-10) ?S82.409B - Unspecified fracture of shaft of unspecified fibula, initial encounter for open fracture type I or II (ICD-10) History of hysteroscopy (08/02/15) ?Z98.890 - Other specified postprocedural states (ICD-10) Status post laparoscopic appendectomy (11/20/18) ?Z90.49 - Acquired absence of other specified parts of digestive tract (ICD- 10) Family History Father Diabetes Lung cancer Social History Smoking Status: Never smoker Do you use any of these nicotine containing products: None Second hand tobacco smoke exposure: No How often do you have a drink containing alcohol: 2-4 times a month How often do you have six or more drinks on one occasion: Never AUDIT-C Alcohol total score: 2 Non-prescribed substance use: denies use service: No Exam Narrative: Exam Narrative: Const: Well-nourished, Well-developed, in mild distress Eyes: PERRL, no conjunctival injection, and symmetrical lids HENT: Atraumatic external nose and ears. Moist mucous membranes. Neck: Symmetric, trachea midline, No thyromegaly. CVS: Tachycardic, No murmurs or gallops. Peripheral pulses 2+ and equal in all extremities RESP: Unlabored respiratory effort. Clear to auscultation bilaterally. GI: Nontender/Nondistended, No rebound or guarding. MSK:Extremities w/o deformity, Normal Active ROM Skin: Warm, Dry. No rashes or lesions. Neuro: Normal Muscle tone, No focal neurological deficits. Psych: Awake, Alert, & Oriented x3. Appropriate mood and affect. Const: Vital Signs, click to edit/add: Vital Signs - 24 hr 07/11/24 11:10 Temperature 97.5 F L Pulse Rate [Left P ulse Oximeter] 145 H Respiratory Rate 16 Blood Pressure [Ri ght Upper Arm] 112/83 Pulse Oximetry 98 Oxygen Delivery Me thod Room Air Course Vital Signs Vital signs: Initial Vital Signs Temperature 97.5 F L 07/11/24 11:10 Temperature Source Temporal Artery Scan 07/11/24 11:10 Pulse Rate 145 H 07/11/24 11:10 Respiratory Rate 16 07/11/24 11:10 Blood Pressure 112/83 07/11/24 11:10 Blood Pressure Mean 92 07/11/24 11:10 Blood Pressure Position Sitting 07/11/24 11:10 Pulse Oximetry 98 07/11/24 11:10 Oxygen Delivery Method Room Air 07/11/24 11:10 Vital Signs Temperature 97.5 F L 07/11/24 11:10 Pulse Rate 145 H 07/11/24 11:10 Respiratory Rate 16 07/11/24 11:10 Blood Pressure 112/83 07/11/24 11:10 Pulse Oximetry 98 07/11/24 11:10 Oxygen Delivery Method Room Air 07/11/24 11:10 Temperature 97.5 F L 07/11/24 11:10 Pulse Rate 145 H 07/11/24 11:10 Respiratory Rate 16 07/11/24 11:10 Blood Pressure 112/83 07/11/24 11:10 Pulse Oximetry 98 07/11/24 11:10 Oxygen Delivery Method Room Air 07/11/24 11:10 Medications Administered Medications: Discontinued Medications Generic Name Dose Route Start Last Admin Trade Name Freq PRN Reason Stop Dose Admin Atenolol 50 mg 07/11/24 11:38 07/11/24 11:53 Atenolol 50 Mg Tablet PO 07/11/24 11:39 50 mg ONCE ONE Administration Lactated Ringer's 1,000 mls @ 1,000 mls/hr 07/11/24 11:30 07/11/24 13:51 Lactated Ringers 1000 Ml IV 07/11/24 12:29 Infused .Q1H ONE Infusion Medical Decision Making MDM Narrative Medical decision making narrative: Patient is a 63-year-old female presenting to the emergency department for tachycardia. Heart rate when she arrived is want 135-145. It appears to be a supraventricular tachycardia based on EKG appearance of note though it is not as rapid as I would typically expect with SVT. Does not appear to be AFib or a flutter. She states she has been having these issues for a long time and has never been told she has SVT or AFib. She states she was always was told it is regular tachycardia. She does state atenolol has helped in the past I will try dose of atenolol. Will also give her L of lactated Ringer's. EKG, troponin, chest x-ray, CBC, BMP all ordered. We tried a modified Valsalva maneuver without any improvement in heart rate. Lab work all returned showing no concerning abnormalities. Initial troponin is 0.04. As previously mentioned the EKG shows what appears to be SVT. We will continue to monitor her to see if she will spontaneous convert to a normal sinus rhythm. Continue to monitor initially she was not converting and we considered doing adenosine. Before we could do the adenosine though she converted to a normal sinus rhythm. Also checks x-ray was done reviewed by myself and radiologist shows no concerning abnormalities. Will repeat troponin. The repeat troponin was within normal limits and the patient continues to feel asymptomatic. She will be discharged. She does have follow-up with oyster grader next week. She is agreeable to this plan. Lab Data Labs: Lab Results 07/11/24 07/11/24 Range/Units 11:15 11:35 WBC 6.84 (4.50-11.00) K/uL RBC 4.87 (4.00-5.20) m/uL Hgb 14.5 (12.0-16.0) gm/dL Hct 45.3 (33.0-51.0) % MCV 93 (80-100) fL MCH 30 (26-34) pg MCHC 32 (32-36) gm/dL RDW Coeff of Umu 13.9 (11.5-15.5) % Plt Count 264 (140-440) K/uL Neut % (Auto) 51.3 (42.0-72.0) % Lymph % (Auto) 35.5 (20-44) % Kleberg % (Auto) 9.1 (0.0-11.0) % Eos % (Auto) 3.4 (0.0-7.0) % Baso % (Auto) 0.4 (0.0-3.0) % Neut # (Auto) 3.51 (1.7-7.0) K/uL Lymph # (Auto) 2.43 (0.90-2.90) K/uL Kleberg # (Auto) 0.60 (0.00-0.90) K/UL Eos # (Auto) 0.23 (0.00-0.50) K/uL Baso # (Auto) 0.03 (0.00-0.30) K/uL Abs Immat Gran (auto) 0.02 (0.00-0.30) K/uL Imm/Tot Granulo (auto) 0.3 % Sodium 139 (135-149) mmol/L Potassium 4.2 (3.6-5.1) mmol/L Chloride 104 (96-114) mmol/L Carbon Dioxide 28 (20-32) mmol/L Anion Gap 7 (7-15) mEq/L BUN 22 (7-30) mg/dL Creatinine 1.0 (0.5-1.5) mg/dL Estimated Creat Clear 56.72 Estimated GFR 64 ml/min Glucose 110 (60-115) mg/dL Calcium 9.8 (8.4-10.6) mg/dL Magnesium 2.1 (1.5-2.6) mg/dL Troponin I 0.04 (0.01-0.04) ng/mL POC Troponin I 0.04 (0.01-0.04) ng/ml Imaging Data Chest x-ray: Radiologist's impression: 1. No acute cardiopulmonary disease is seen. Dictated by: Migel Jefferson MD @ 07/11/2024 12:28:10 ECG Data Attestation: I personally reviewed and interpreted this ECG as follows: Interpretation: Initial EKG at 11:23 supraventricular tachycardia with a rate of 138 beats per minute, normal QT interval, no clear ST or T-wave abnormalities. Repeat EKG after a conversion to a sinus rhythm at 13:41: Normal sinus rhythm with a rate of 65 beats per minute, normal intervals, normal axis, no ST or T- wave abnormalities. Appears similar to previous EKG on file from 05/20/2024 Discharge Plan Discharge Clinical Impression: Tachycardia Patient Disposition: Home, Self-Care Condition: Improved Instructions: Tachycardia (ED) Additional Instructions: Return to emergency department for new or worsening symptoms. I do recommend that if the symptoms recur can prior to seen your oyster grader to call their office and see if you are allowed to take care previous atenolol dosage. Prescriptions: No Action valacyclovir 1 gram tablet 4,000 mg PO ONCE warfarin 7.5 mg tablet 7.5 mg PO DAILY sumatriptan succinate 50 mg tablet 50 mg PO Q2H ezetimibe 10 mg tablet 10 mg PO DAILY venlafaxine 75 mg tablet extended release 24hr 150 mg PO DAILY diclofenac sodium 1 % gel 2 g topical .Daily as needed PRN cholecalciferol (vitamin D3) 25 mcg (1,000 unit) tablet 1,000 unit PO BID lysine 500 mg tablet 500 mg PO .3XWEEK acetaminophen 500 mg tablet 500 mg PO PRN Rx Instructions: NO MORE THAN 4000 MG/DAY diphenhydramine-acetaminophen 25-500 mg tablet 2 tab PO .Bedtime multivitamin [Multiple Vitamins] Tablet 1 tab PO QDAY sumatriptan succinate 25 mg tablet 25 mg PO .As Needed PRN Rx Instructions: ONE TAB AT ONSET OF HEADACHE, MAY REPEAT Q2H PRN, MAX 200 MG/24 HRS penciclovir 1 % cream 1 applic topical Q2H PRN Rx Instructions: APPLY A SMALL AMOUNT TO THE AFFECTED AREA calcium carbonate-vitamin D3 PO rosuvastatin 10 mg tablet PO Follow Up/Referrals: Provider,Not a Local [Primary Care Provider] - Stand Alone Forms: [facility] Info Instructions
[2024-07-11 11:45] LABS: Basophils Absolute Auto 0.03 K/uL (0.00-0.30); Basophils Percent Auto 0.4 % (0.0-3.0); Eosinophils Absolute Auto 0.23 K/uL (0.00-0.50); Eosinophils Percent Auto 3.4 % (0.0-7.0); Hematocrit 45.3 % (33.0-51.0); Hemoglobin* 14.5 gm/dL (12.0-16.0); Immature Granulocytes Abs Auto 0.02 K/uL (0.00-0.30); Immature Granulocytes Pct Auto 0.3 %; Lymphocytes Absolute Auto 2.43 K/uL (0.90-2.90); Lymphocytes Percent Auto 35.5 % (20-44); Mean Corpuscular HGB Conc 32 gm/dL (32-36); Mean Corpuscular Hemoglobin 30 pg (26-34); Mean Corpuscular Volume 93 fL (80-100); Monocytes Percent Auto 9.1 % (0.0-11.0); Neutrophils Absolute Auto 3.51 K/uL (1.7-7.0); Neutrophils Percent Auto 51.3 % (42.0-72.0); Platelet Count* 264 K/uL (140-440); RDW Coefficient of Variation % 13.9 % (11.5-15.5); Red Blood Count 4.87 m/uL (4.00-5.20); White Blood Count* 6.84 K/uL (4.50-11.00)
[2024-07-11 11:51] LABS: Slide Review Reflex No
[2024-07-11] MEDS: LACTATED RINGERS 1000 ML 1,000 ML IV (11:53)
[2024-07-11] MEDS: atenoloL 50 MG TABLET PO (11:53)
[2024-07-11 12:03] LABS: Troponin, Point-of-Care* 0.04 ng/ml (0.01-0.04)
[2024-07-11 12:05] LABS: Chloride* 104 mmol/L (96-114)
[2024-07-11 12:06] LABS: Potassium* 4.2 mmol/L (3.6-5.1); Sodium* 139 mmol/L (135-149)
[2024-07-11 12:08] LABS: Est. Creatinine Clearance* 56.72; Estimated Glomerular Filt Rate 64 ml/min
[2024-07-11 12:09] LABS: Anion Gap 7 mEq/L (7-15); Blood Urea Nitrogen* 22 mg/dL (7-30); Calcium* 9.8 mg/dL (8.4-10.6); Carbon Dioxide* 28 mmol/L (20-32); Glucose* 110 mg/dL (60-115); Magnesium* 2.1 mg/dL (1.5-2.6)
[2024-07-11 12:21] LABS: Troponin I* 0.04 ng/mL (0.01-0.04)
== END 2024-07-11 14:31 | disposition home or self-care (01) ==
PROVIDERS: Emergency Provider Student in an Organized Health Care Education/Training Program
DX: I47.10 Supraventricular tachycardia, unspecified (principal)
CPT/HCPCS: 36415; 71045; 80048; 83735; 84484; 85025; 93005; 99283; 99284; A9270; J7120